=== PATIENT | male | born 1980 | race Caucasian/White ===

== ENCOUNTER 2025-05-17 12:58 | Emergency (ER) | payer MEDICAID, OTHER ==
[~2025-05-17] VITALS: Ht 180.3 cm; Wt 113.6 kg
[~2025-05-17 12:58] MED LIST: CLIN-224 PO
[2025-05-17 12:59] VITALS: BP 152/82; PULSE 66; RESP 16; TEMP 98; O2SAT 98
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
== END 2025-05-17 13:25 ==
LOC: ER 12:58
DX: Z00.00 Encounter for general adult medical examination without abnormal findings (principal); F41.9 Anxiety disorder, unspecified
CPT/HCPCS: 99283

== ENCOUNTER 2025-05-27 14:36 | Emergency (ER) | payer OTHER ==
[~2025-05-27] VITALS: Ht 183.5 cm; Wt 113.6 kg
[2025-05-27 14:43] VITALS: BP 164/89; PULSE 47; RESP 16; TEMP 97.6; O2SAT 99
--- NOTE | 2025-05-27 14:53 | Physician Documentation ---
History of Present Illness ~ General Chief Complaint: Facial Swelling Stated Complaint: ABSCESS TOOTH Time Seen by MD: 14:47 Primary Medical Doctor: SAMAN History of Present Illness Initial Comments 45-year-old male presents with a complaint of right facial swelling secondary to a tooth infection. He states he feels like there is an abscess developing in the upper front slightly lateral region of his oral cavity. States he has got multiple tooth caries in the history of tooth infections. Currently afebrile but tachycardic in the triage. Medication Reconciliation Allergies: Coded Allergies: No Known Allergies (Unverified , 05/27/25) Scheduled Amox Tr/Potassium Clavulanate (Augmentin 875-125 Tablet), 1 TAB PO Q12H Clindamycin HCL* (Clindamycin HCL*), 1 CAP PO Q6H Past Medical History Past Medical History: No Pertinent History Past Surgical History: orthopedic surgeries Alcohol Use: Occasionally Drug Use: methamphetamine Lives with: Family Lives In: Home Review of Systems All Other Systems at this time: Reviewed and Negative ROS As stated above in the HPI, otherwise all systems are reviewed and negative. Physical Exam Physical Exam Vital Signs: Temperature: 97.6, Source: Temporal, Heart Rate: 47, Respiratory Rate: 16, BP: 164/89, Pulse Oximetry: 99, Weight: 113.630 Oxygen Flow Rate: 0 Physical Exam General: Alert, no apparent distress. HEENT: PERRL, EOMI, no injection, moist mucous membranes. right facial swelling, notavble tooth caries, point tenderness upper right lip region Neck: Full range of motion. Respiratory: Lungs clear, no respiratory distress. Chest: No accessory muscle use. Cardiovascular: Regular rate and rhythm, no murmurs. Gastrointestinal: Soft, nontender, nondistended. Bowels sounds present. Extremities: Normal range of motion, no deformity. Neurologic: Oriented x4. Psychiatric: Normal mood and affect. Skin: Normal color, warm and dry. No edema, no ecchymosis. Procedures I & D Procedure : Anesthesia: Lidocaine w/ Epi Blade Size: 11 Incision: pus drained Tolerated Procedure Well?: yes, no complications Procedure Note small incision made upper right patient in line with the 7th tooth. Notable discharge was evident Patient tolerated procedure well Progress Results/Orders Results/Orders Orders - REINALDO PERAZA NP General Nursing Order (05/27/25 ) Completed Orders - REINALDO PERAZA AMBULANCE OPERATIONS SUPERVISOR Lidocaine 1% W/Epi 1:100,000 (Xylocaine (05/27/25 14:55) Vital Signs 05/27/25 14:43 Temp 97.6 Pulse 47 Resp 16 B/P (MAP) 164/89 Pulse Ox 99 O2 Flow Rate 0 Medical Decision Making Additional information obtaine: old records Findings Successful I and D was performed on a suspected tooth abscess. We will place the patient on oral antibiotics and discharge him for outpatient therapy Differential Diagnosis r Departure Disposition: HOME / SELF CARE / HOMELESS Impression: Primary Impression: Dental abscess Additional Impression: Dental abscess Discharge Instructions: Abscess, Dental Referrals: NO PRIMARY CARE PROVIDER (PCP) Prescriptions Amox Tr/Potassium Clavulanate (Augmentin 875-125 Tablet) 1 Each Tablet 1 TAB PO Q12H for 10 Days, #20 TAB Prov: REINALDO PERAZA NP 05/27/25 Signature Scribe Signature: f Attestation: Scribed for Reinaldo Peraza Finish Off Operator by Reinaldo Cochran NP . 05/27/25 23:09 REINALDO PERAZA NP May 27, 2025 14:53
[2025-05-27] MEDS: LIDOcaine 1% W/epiNEPHrine 1:100,000 20ml vial SQ ONE (15:19)
[2025-05-27] MEDS ORDERED: AMOX-117 PO (15:28)
== END 2025-05-27 15:38 | disposition home or self-care (01) ==
LOC: ER 14:36
DX: K04.7 Periapical abscess without sinus (principal); F15.90 Other stimulant use, unspecified, uncomplicated; Z72.89 Other problems related to lifestyle; Z98.890 Other specified postprocedural states
CPT/HCPCS: 41800; 99284